=== PATIENT | male | born 1935 | race Caucasian/White ===

== ENCOUNTER 2023-12-10 15:12 | Emergency (ER) | payer OTHER ==
[~2023-12-10] VITALS: Ht 185.4 cm; Wt 90.7 kg
[~2023-12-10 15:12] MED LIST: ASPI325; ASPI325 PO; ATOR10; ATOR20 PO; ATOR40TA PO; CELE200; CHOL10002 PO; CYAN1000 PO; DIOVAN; HYDACE10B PO; LEVFLO500 PO; LOSHYD PO; METO25ER PO; METO50ER; NITR.6SL; OXYACE5T PO; PREG100 PO; Pravachol40 MG PO; TAMS.4ER PO; VALS80; VALS80 PO
[2023-12-10 15:18] VITALS: BP 156/105
[2023-12-10] MEDS ORDERED: Tetracaine HCl/Pf 0.5% Opth Soln 4 ml RIGHTEYE ONE (15:20)
[2023-12-10] MEDS ORDERED: Fluorescein Sod 1MG Opth Strips RIGHTEYE ONE (15:20)
[2023-12-10] MEDS ORDERED: OCUFLOX510 RIGHTEYE (16:20)
[2023-12-10] MEDS ORDERED: Erythromycin 0.5% Opth Oint 1 gm RIGHTEYE ONE (16:20)
[2023-12-10] MEDS ORDERED: ERYT.5TO RIGHTEYE (16:20)
[2023-12-10] MEDS ORDERED: Ofloxacin 0.3% Opth Soln 5 ML RIGHTEYE ONE (16:20)
== END 2023-12-10 16:33 | disposition home or self-care (01) ==
LOC: ER 15:12
DX: S05.01XA Injury of conjunctiva and corneal abrasion without foreign body, right eye, initial encounter (principal); X58.XXXA Exposure to other specified factors, initial encounter; I10 Essential (primary) hypertension; Z79.899 Other long term (current) drug therapy; Z79.82 Long term (current) use of aspirin; Z95.1 Presence of aortocoronary bypass graft
CPT/HCPCS: 99283; A9270